=== PATIENT | male | born 1990 | race Hispanic/Latino ===

== ENCOUNTER 2017-10-25 23:33 | Emergency (ER) | payer OTHER ==
[2017-10-25 23:44] VITALS: RESP 16
--- NOTE | 2017-10-26 00:12 | ED PDOC ---
HPI: Abdomen Time Seen by Provider: 10/25/17 23:58 Chief Complaint (Nursing): Abdominal Pain Chief Complaint (Provider): abdominal pain History Per: Patient History/Exam Limitations: no limitations Onset/Duration Of Symptoms: Days (2), Waxing/Waning Current Symptoms Are (Timing): Still Present Location Of Pain/Discomfort: Epigastric Quality Of Discomfort: Burning Associated Symptoms: Nausea Additional Complaint(s): 27 y/o male presents for evaluation of intermittent upper abdominal pain x 2 days. Patient states pain improved after making himself vomit once tonight, but returned shortly after. Denies fever, cough, congestion, chest pain, shortness of breath, palpitations, urinary symptoms, changes in bowel movements , recent travel. Past Medical History Reviewed: Historical Data, Nursing Documentation, Vital Signs Vital Signs: Last Vital Signs Temp 97.7 F 10/25/17 23:42 Pulse 52 L 10/25/17 23:42 Resp 16 10/25/17 23:42 BP 142/81 10/25/17 23:42 Pulse Ox 98 10/26/17 02:37 - Medical History PMH: No Chronic Diseases - Surgical History Other surgeries: ortho surgeries - Family History Family History: States: No Known Family Hx - Living Arrangements Living Arrangements: Alone - Social History Current smoker - smoking cessation education provided: No Alcohol: Occasional Drugs: Denies - Home Medications Home Medications: Ambulatory Orders Medication Instructions Recorded Famotidine [Pepcid] 20 mg PO BID #14 tab 10/26/17 - Allergies Allergies/Adverse Reactions: Allergies Allergy/AdvReac Type Severity Reaction Status Date / Time No Known Allergies Allergy Verified 10/25/17 23:42 Review of Systems ROS Statement: Except As Marked, All Systems Reviewed And Found Negative Gastrointestinal: Positive for: Abdominal Pain Physical Exam - Reviewed Nursing Documentation Reviewed: Yes Vital Signs Reviewed: Yes - Physical Exam Appears: Positive for: Well, Non-toxic, No Acute Distress Head Exam: Positive for: ATRAUMATIC, NORMAL INSPECTION, NORMOCEPHALIC Skin: Positive for: Normal Color Eye Exam: Positive for: Normal appearance ENT: Positive for: Normal ENT Inspection Cardiovascular/Chest: Positive for: Regular Rate, Rhythm Respiratory: Positive for: Normal Breath Sounds Gastrointestinal/Abdominal: Positive for: Normal Exam, Bowel Sounds, Soft. Negative for: Tenderness Back: Positive for: Normal Inspection Extremity: Positive for: Normal ROM Neurologic/Psych: Positive for: Alert, Oriented - Laboratory Results Result Diagrams: 10/26/17 00:24 10/26/17 00:24 - ECG O2 Sat by Pulse Oximetry: 98 - Progress ED Course And Treament: labs, urine, IV pepcid On re-eval, patient sleeping; upon awakening states pain slightly improved Patient educated on findings, discharged with rx pepcid Advised follow up PMD 2-3 days. Return precautions given. Disposition - Clinical Impression Clinical Impression: Abdominal pain - Patient ED Disposition Is Patient to be Admitted: No Counseled Patient/Family Regarding: Studies Performed, Diagnosis, Need For Followup, Rx Given - Disposition Disposition: Routine/Home Disposition Time: 02:36 Condition: IMPROVED Prescriptions: Famotidine [Pepcid] 20 mg PO BID #14 tab Instructions: Acute Abdomen (Belly Pain), Adult (DC) Forms: [employer] (Russian)
[2017-10-26 00:34] LABS: BASO % 0.4 % (0.0-2.0); EOS # 0.1 K/uL (0.0-0.7); EOS % 1.3 % (0.0-4.0); HEMOGLOBIN 16.1 g/dL (12.0-18.0); LYMPH # 2.6 K/uL (1.0-4.3); LYMPH % 28.2 % (20.0-40.0); MEAN CELL VOLUME 86.3 fl (80.0-94.0); MEAN CORPUSCULAR HEMOGLOBIN 29.1 pg (27.0-31.0); MEAN CORPUSCULAR HGB CONC 33.7 g/dL (33.0-37.0); MEAN PLATELET VOLUME 8.2 fl (7.2-11.7); MONO # 0.5 K/uL (0.0-0.8); MONO % 5.7 % (0.0-10.0); NEUT # 5.9 K/uL (1.8-7.0); NEUT % 64.4 % (50.0-75.0); RBC 5.52 Mil/uL (4.40-5.90); RED CELL DISTRIBUTION WIDTH 12.7 % (11.5-14.5); WHITE BLOOD COUNT 9.2 K/uL (4.8-10.8)
[2017-10-26 00:42] LABS: BLOOD UREA NITROGEN 15 mg/dl (9-20); GFR AFRICAN-AMERICAN > 60; GFR NON-AFRICAN AMERICAN > 60
[2017-10-26 00:43] LABS: ALB/GLOB RATIO 1.5 (1.0-2.1); ALBUMIN 4.8 g/dL (3.5-5.0); ALT/SGPT 32 U/L (21-72); AST/SGOT 29 U/L (17-59); CALCIUM 9.5 mg/dL (8.4-10.2); LIPASE 58 U/L (23-300)
[2017-10-26 02:51] VITALS: BP 124/81; PULSE 45; TEMP 97.4; O2SAT 99
== END 2017-10-26 03:19 | disposition home or self-care (01) ==
LOC: H.ER 23:33
DX: R10.11 Right upper quadrant pain (principal)